=== PATIENT | female | born 1970 | race Caucasian/White ===

== ENCOUNTER 2024-09-01 08:19 | Day surgery (SDC) | payer OTHER ==
[2024-08-23 14:37] LABS: BASOPHILS # (AUTO) 0.1 X10'3 (0-0.2); BASOPHILS % (AUTO) 0.9 % (0-1); EOSINOPHILS # (AUTO) 0.6 X10'3 (0-0.9); EOSINOPHILS % (AUTO) 6.2 % (0-6); LYMPHOCYTES # (AUTO) 2.9 X10'3 (1.1-4.8); LYMPHOCYTES % (AUTO) 32.1 % (21-51); MEAN CORPUSCULAR HEMOGLOBIN 29.6 PG (27.0-31.0); MEAN CORPUSCULAR VOLUME 89.8 FL (78-98); MEAN PLATELET VOLUME 7.8 FL (7.4-10.4); MONOCYTES # (AUTO) 0.8 X10'3 (0-0.9); MONOCYTES % (AUTO) 9.1 % (2-12); NEUTROPHILS # (AUTO) 4.6 X10'3 (1.8-7.7); NEUTROPHILS % (AUTO) 51.7 % (42-75); PRE OP HEMATOCRIT 38.8 % (35.0-45.0); PRE OP HEMOGLOBIN 12.8 g/dL (12.0-16.0); PRE OP PLATELET COUNT 312 X10'3 (140-440); RED BLOOD COUNT 4.32 X10'6 (4.20-5.60); RED CELL DISTRIBUTION WIDTH 14.5 % (11.5-14.5)
[2024-08-23 14:50] LABS: ALBUMIN 3.4 G/DL (3.4-5.0); ALBUMIN/GLOBULIN RATIO 0.9 (1.1-1.5); ALKALINE PHOSPHATASE 101 IU/L (46-116); BLOOD UREA NITROGEN 13 MG/DL (7-18); BUN/CREATININE RATIO 14.9 (10.0-20.0); CALCIUM 8.7 MG/DL (8.5-10.1); CHLORIDE 103 MMOL/L (99-107); CREATININE 0.87 MG/DL (0.40-0.90); PRE OP ALT 35 U/L (30-65); PRE OP ANION GAP 10 (8-16); PRE OP AST 17 U/L (10-37); PRE OP BILIRUB, TOTAL 0.2 MG/DL (0.0-1.0); PRE OP GLUCOSE 109 MG/DL (70-104); PRE OP POTASSIUM 4.2 MMOL/L (3.4-5.1); PRE OP SODIUM 138 MMOL/L (135-145); TOTAL CARBON DIOXIDE 25.1 MMOL/L (24-32); TOTAL PROTEIN 7.1 G/DL (6.4-8.2); eGFR 68 ML/MIN
[2024-08-23 14:58] LABS: BILIRUBIN,URINE NEGATIVE (Neg); CLARITY,URINE CLEAR (Clear); COLOR,URINE YELLOW (Yellow); GLUCOSE, URINE NEGATIVE (Neg); KETONES,URINE NEGATIVE (Neg); LEUKOCYTE ESTERASE ,URINE NEGATIVE (Neg); NITRITES, URINE NEGATIVE (Neg); OCCULT BLOOD,URINE TRACE-INTACT (Neg); PROTEIN,URINE NEGATIVE (Neg); UROBILINOGEN,URINE 0.2 E.U/dL (0.2-1.0)
[2024-08-23 14:59] LABS: UA COLLECTION TYPE CLN CATCH MIDSTREAM
[2024-08-23 15:09] LABS: BACTERIA,URINE 2+ /HPF (Neg); RBC,URINE 0-2 /HPF (0-2); RENAL CELLS, URINE FEW /HPF; SQUAMOUS EPITHELIAL CELL,UR FEW /LPF (FEW); TRANSITIONAL EPI CELLS,URINE FEW /HPF; WBC,URINE 0-4 /HPF (0-4)
[2024-09-01] VITALS (11 sets, daily range): BP systolic 122–150; BP diastolic 72–104; PULSE 73–90; RESP 13–16; TEMP 98.1; O2SAT 96–98
[~2024-09-01] VITALS: Ht 182.9 cm; Wt 151.0 kg
[2024-09-01] MEDS: CEFAZOLIN 3GM/DEXTROSE 150mL 150 ML IV ONE (05:30)
[~2024-09-01 08:19] MED LIST: ALBU18HF2; BACL10TA2 PO; BUPR-480 PO; CALC-1151 PO; CETI10CA PO; CINN500C16; FLUO-167 PO; FLUT16SP2 BOTHNARES; HYDR-3964 PO; LAMO200T10; LORA10TA7 PO; MAGN400T39 PO; METH-798 PO; NAPR-1166 PO; OMEP20CA16 PO; POTA5TAB PO; VITA1TAB97 PO
[2024-09-01] MEDS: famotidine 20mg tablet PO ONE (09:05)
[2024-09-01] MEDS: ringers solution, lacted 1,000 ML IV SCH (09:05)
[2024-09-01] MEDS ORDERED: meperidine/PF 25mg/ml syringe IV PRN ×3 (10:35)
[2024-09-01] MEDS ORDERED: proCHLORperazine 10 MG/2 ml inj IV PRN (10:35)
[2024-09-01] MEDS ORDERED: morphine 2 MG/ML inj. syringe IV PRN (10:35)
[2024-09-01] MEDS ORDERED: enalaprilat 1.25mg/ml 2ml vial IV PRN (10:35)
[2024-09-01] MEDS ORDERED: ondansetron/PF 4mg/2ml inj IV PRN (10:35)
[2024-09-01] MEDS ORDERED: ringers solution, lacted 1,000 ML IV SCH (10:35)
[2024-09-01] MEDS ORDERED: labetalol 20mg/4ml (5mg/ml) syringe IV PRN (10:35)
[2024-09-01] MEDS ORDERED: BUPIVAcaine/PF 7.5mg/ml (0.75%) 10ml vial ONE (11:00)
[2024-09-01] MEDS ORDERED: bacitracin 15gm ointment TP ONE (12:08)
[2024-09-01] MEDS: bacitracin 15gm ointment TP ONE (12:40)
[2024-09-01] MEDS: morphine 4 MG/ML inj SYRINge IV PRN (13:54)
== END 2024-09-01 14:30 | disposition home or self-care (01) ==
LOC: PRE-OP 08:19
PROVIDERS: ATTEND Podiatrist Foot & Ankle Surgery
DX: M62.462 Contracture of muscle, left lower leg (principal); M92.62 Juvenile osteochondrosis of tarsus, left ankle; M72.2 Plantar fascial fibromatosis; M77.8 Other enthesopathies, not elsewhere classified; M76.62 Achilles tendinitis, left leg; G47.30 Sleep apnea, unspecified; Z79.899 Other long term (current) drug therapy; Z98.890 Other specified postprocedural states; Z90.710 Acquired absence of both cervix and uterus; Z88.0 Allergy status to penicillin
CPT/HCPCS: 27654; 27687; 28119; 36415; 73600; 80053; 81001; 82948; 85025; A6222; C1713; J2270; J2405; J3490; J7030; J7120; Z7506; Z7508; Z7512; 76000; A4215; A4618; A6253; A6449; A7000